=== PATIENT | male | born 1955 | race African-American/Black ===

== ENCOUNTER 2020-07-08 12:12 | Inpatient (IN) ==
[2020-07-08 14:35] LABS: Basophils % 0.4 % (0.0-0.8); Eosinophils # 0.4 10*3/uL (0.0-0.87); Eosinophils % 4.9 % (0.00-10.9); Hematocrit 41.1 VOL% (42.0-52.0); Hemoglobin 14.5 GM/DL (14.0-18.0); Immature Granulocytes % 0.5 %; Immature Granulocytes Absolute 0.04 #; Lymphocytes # 0.8 10*3/uL (1.4-4.0); Mean Corpuscular HGB Conc 35.3 GM/DL (32-36); Mean Platelet Volume 10.7 FL (9.6-12.0); Monocytes % 6.4 % (1.7-12.7); Neutrophils % 77.8 % (38.7-73.9); Platelet Count 149 T/CUMM (130-400); Red Blood Count 4.78 MC/CUMM (3.8-5.5); Red Cell Distribution Width 13.7 % (9.3-17.3); White Blood Count 7.5 T/CUMM (4-12)
[2020-07-08 15:05] LABS: Albumin 3.5 G/DL (3.4-5.0); Bilirubin,Total 2.3 MG/DL (0.2-1.0); Calcium 8.8 MG/DL (8.5-10.1); Osmolality,Calculated 261.9 MOS/KG (273-304); Potassium 4.2 MMOL/L (3.5-5.1); Total Protein 7.6 G/DL (6.4-8.2)
[2020-07-08] MEDS ORDERED: SODIUM CHLORIDE 0.9% 1,000 ML IV STA (15:19)
[2020-07-08] MEDS ORDERED: ONDANSETRON 4 MG/2 ML VIAL IV PRN (15:52)
[2020-07-08] MEDS ORDERED: chlordiazePOXIDE 10 MG CAPSULE PO PRN (16:48)
[2020-07-08] MEDS: SODIUM CHLORIDE 0.9% 1,000 ML IV SCH (18:34)
[2020-07-08] MEDS: HEPARIN 5,000 UNIT/1 ML VIAL SUBCUT SCH (18:35)
[2020-07-09 05:32] LABS: Basophils % 0.3 % (0.0-0.8); Eosinophils # 0.4 10*3/uL (0.0-0.87); Eosinophils % 5.5 % (0.00-10.9); Hematocrit 36.8 VOL% (42.0-52.0); Hemoglobin 13.3 GM/DL (14.0-18.0); Immature Granulocytes % 0.7 %; Immature Granulocytes Absolute 0.05 #; Lymphocytes # 0.8 10*3/uL (1.4-4.0); Lymphocytes % 11.7 % (21.2-54.2); Mean Corpuscular HGB Conc 36.1 GM/DL (32-36); Mean Corpuscular Volume 85.6 FL (87-102); Mean Platelet Volume 11.6 FL (9.6-12.0); Monocytes % 7.6 % (1.7-12.7); Neutrophils % 74.2 % (38.7-73.9); Platelet Count 126 T/CUMM (130-400); Red Cell Distribution Width 13.4 % (9.3-17.3); White Blood Count 7.1 T/CUMM (4-12)
[2020-07-09 05:53] LABS: Hypochromasia 1+
[2020-07-09 05:54] LABS: Microcytosis Slight
[2020-07-09 05:55] LABS: Platelet Estimate Adequate
[2020-07-09] MEDS: SODIUM CHLORIDE 0.9% 1,000 ML IV SCH ×4 (06:04→20:40)
[2020-07-09] MEDS: HEPARIN 5,000 UNIT/1 ML VIAL SUBCUT SCH ×2 (06:05→15:22)
[2020-07-09 06:45] LABS: Albumin 2.5 G/DL (3.4-5.0); Alkaline Phosphatase 388 U/L (45-117); Aspartate Amino Transferase 655 U/L (0-37); Blood Urea Nitrogen 58 MG/DL (7-18); Carbon Dioxide 17 MMOL/L (21-32); Estimated Glom Filtration Rate 7 ML/MIN; Glucose 83 MG/DL (74-106); HDL Cholesterol < 10 MG/DL (40-60); Osmolality,Calculated 256.2 MOS/KG (273-304); Potassium 4.7 MMOL/L (3.5-5.1); Total Protein 6.4 G/DL (6.4-8.2); Triglycerides 312 MG/DL (2-150); VLDL CHOLESTEROL 62.4 MG/DL
[2020-07-09 06:46] LABS: Alanine Aminotransferase 1408 U/L (16-61)
[2020-07-09 06:47] LABS: Sodium 120 MMOL/L (136-145)
[2020-07-09 06:50] LABS: Hepatitis B Core IgM Quant 0.07 Index; Hepatitis B Surface Ag Quant < 0.10 Index; Hepatitis B Surface Ag Result Non-Reactive (NonReactive); Hepatitis C Virus Ab Quant 0.24 Index; Hepatitis C Virus Ab Result Non-Reactive (NonReactive)
[2020-07-09] MEDS ORDERED: SODIUM BICARBONATE 50 MEQ/50 ML VIAL IV ONE ×2 (07:13→08:00)
[2020-07-09] MEDS: FAMOTIDINE 20 MG TABLET PO SCH (09:00)
[2020-07-09] MEDS ORDERED: PANTOPRAZOLE 40 MG TABLET PO SCH (09:00)
[2020-07-09] MEDS: FOLIC ACID 1 MG TABLET PO SCH (09:00)
[2020-07-09] MEDS: THIAMINE 100 MG TABLET PO SCH (09:01)
[2020-07-09] MEDS: LEVOTHYROXINE 50 MCG TABLET PO SCH (09:01)
[2020-07-09] MEDS: MULTIVITAMIN (BEROCCA) TABLET PO SCH (09:01)
[2020-07-09 19:22] LABS: Bacteria,Urine Occasional /HPF (Few); Bilirubin,Urine Negative (Negative); Blood, Urine Negative (Negative); Glucose,Urine (UA) Negative (Negative); Ketones,Urine Negative (Negative); Nitrite,Urine Negative (Negative); Protein,Urine Negative; RBC,Urine <1 /HPF (0-4); Squamous Epithelial Cell,Urine Occasional /HPF (0-10); Urine Appearance CLEAR (Clear); Urine Color Straw (Yellow); Urine Specific Gravity 1.004 (1.001-1.035); Urine Urobilinogen < 2.0 EU/DL (0.2-1.0); WBC,Urine 2 /HPF (0-6)
[2020-07-10] MEDS: HEPARIN 5,000 UNIT/1 ML VIAL SUBCUT SCH ×2 (03:39→16:04)
[2020-07-10] MEDS: SODIUM CHLORIDE 0.9% 1,000 ML IV SCH ×5 (03:39→23:40)
[2020-07-10 06:02] LABS: Basophils % 0.4 % (0.0-0.8); Eosinophils # 0.4 10*3/uL (0.0-0.87); Eosinophils % 6.7 % (0.00-10.9); Hematocrit 36.1 VOL% (42.0-52.0); Hemoglobin 12.6 GM/DL (14.0-18.0); Immature Granulocytes % 0.6 %; Immature Granulocytes Absolute 0.03 #; Lymphocytes # 0.9 10*3/uL (1.4-4.0); Lymphocytes % 17.3 % (21.2-54.2); Mean Corpuscular HGB Conc 34.9 GM/DL (32-36); Mean Platelet Volume 10.7 FL (9.6-12.0); Monocytes % 12.5 % (1.7-12.7); Neutrophils % 62.5 % (38.7-73.9); Platelet Count 96 T/CUMM (130-400); Red Blood Count 4.15 MC/CUMM (3.8-5.5); Red Cell Distribution Width 13.9 % (9.3-17.3); White Blood Count 5.2 T/CUMM (4-12)
[2020-07-10 06:25] LABS: Albumin 2.4 G/DL (3.4-5.0); Bilirubin,Total 1.1 MG/DL (0.2-1.0); Calcium 8.1 MG/DL (8.5-10.1); Osmolality,Calculated 270.2 MOS/KG (273-304); Potassium 4.6 MMOL/L (3.5-5.1); Total Protein 5.9 G/DL (6.4-8.2)
[2020-07-10 06:42] LABS: Platelet Estimate Decreased
[2020-07-10] MEDS ORDERED: SIMETHICONE CHEW 125 MG TABLET PO PRN ×3 (09:04→17:00)
[2020-07-10] MEDS: MULTIVITAMIN (BEROCCA) TABLET PO SCH (09:19)
[2020-07-10] MEDS: THIAMINE 100 MG TABLET PO SCH (09:19)
[2020-07-10] MEDS: LEVOTHYROXINE 50 MCG TABLET PO SCH (09:19)
[2020-07-10] MEDS: FAMOTIDINE 20 MG TABLET PO SCH (09:20)
[2020-07-10] MEDS: FOLIC ACID 1 MG TABLET PO SCH (09:20)
[2020-07-10] MEDS ORDERED: MAGNESIUM HYDROXIDE SUSP 30 ML UDCUP PO ONE (20:40)
[2020-07-11] MEDS: HEPARIN 5,000 UNIT/1 ML VIAL SUBCUT SCH ×2 (03:59→15:04)
[2020-07-11] MEDS: SODIUM CHLORIDE 0.9% 1,000 ML IV SCH ×3 (05:09→18:25)
[2020-07-11 06:09] LABS: Basophils % 0.5 % (0.0-0.8); Eosinophils # 0.4 10*3/uL (0.0-0.87); Eosinophils % 6.3 % (0.00-10.9); Hematocrit 38.1 VOL% (42.0-52.0); Hemoglobin 13.2 GM/DL (14.0-18.0); Immature Granulocytes % 0.3 %; Immature Granulocytes Absolute 0.02 #; Lymphocytes # 1.2 10*3/uL (1.4-4.0); Lymphocytes % 19.5 % (21.2-54.2); Mean Corpuscular HGB Conc 34.6 GM/DL (32-36); Mean Corpuscular Volume 88.6 FL (87-102); Mean Platelet Volume 10.8 FL (9.6-12.0); Monocytes % 14.2 % (1.7-12.7); Neutrophils % 59.2 % (38.7-73.9); Platelet Count 105 T/CUMM (130-400); Red Cell Distribution Width 14.6 % (9.3-17.3); White Blood Count 6.1 T/CUMM (4-12)
[2020-07-11 06:33] LABS: Albumin 2.7 G/DL (3.4-5.0); Bilirubin,Total 1.4 MG/DL (0.2-1.0); Calcium 8.1 MG/DL (8.5-10.1); Osmolality,Calculated 285.1 MOS/KG (273-304); Potassium 4.4 MMOL/L (3.5-5.1); Total Protein 6.5 G/DL (6.4-8.2)
[2020-07-11] MEDS: THIAMINE 100 MG TABLET PO SCH (08:02)
[2020-07-11] MEDS: FAMOTIDINE 20 MG TABLET PO SCH ×2 (08:02→08:54)
[2020-07-11] MEDS: MULTIVITAMIN (BEROCCA) TABLET PO SCH (08:02)
[2020-07-11] MEDS: LEVOTHYROXINE 50 MCG TABLET PO SCH (08:03)
[2020-07-11] MEDS: FOLIC ACID 1 MG TABLET PO SCH (08:03)
[2020-07-11] MEDS: DOCUSATE SODIUM 100 MG CAPSULE PO SCH (21:15)
[2020-07-12] MEDS: SODIUM CHLORIDE 0.9% 1,000 ML IV SCH ×3 (01:00→14:46)
[2020-07-12] MEDS: HEPARIN 5,000 UNIT/1 ML VIAL SUBCUT SCH ×2 (04:39→16:56)
[2020-07-12] MEDS: LEVOTHYROXINE 75 MCG TABLET PO SCH (05:45)
[2020-07-12 11:47] LABS: Calcium 8.5 MG/DL (8.5-10.1); Osmolality,Calculated 290.5 MOS/KG (273-304); Potassium 4.4 MMOL/L (3.5-5.1)
[2020-07-12 12:31] LABS: Albumin 3.1 G/DL (3.4-5.0); Bilirubin,Direct 0.43 MG/DL (0.0-0.20); Bilirubin,Indirect 0.4 MG/DL (0.0-1.0); Bilirubin,Total 0.8 MG/DL (0.2-1.0); Total Protein 7.2 G/DL (6.4-8.2)
[2020-07-12] MEDS: MULTIVITAMIN (BEROCCA) TABLET PO SCH (14:45)
[2020-07-12] MEDS: DOCUSATE SODIUM 100 MG CAPSULE PO SCH ×2 (14:45→20:09)
[2020-07-12] MEDS: THIAMINE 100 MG TABLET PO SCH (14:45)
[2020-07-12] MEDS: FOLIC ACID 1 MG TABLET PO SCH (14:45)
[2020-07-12] MEDS: FAMOTIDINE 20 MG TABLET PO SCH (14:45)
[2020-07-13] MEDS: SODIUM CHLORIDE 0.9% 1,000 ML IV SCH (02:56)
[2020-07-13] MEDS: HEPARIN 5,000 UNIT/1 ML VIAL SUBCUT SCH ×2 (04:55→16:02)
[2020-07-13 05:17] LABS: Basophils % 0.4 % (0.0-0.8); Eosinophils # 0.5 10*3/uL (0.0-0.87); Eosinophils % 7.3 % (0.00-10.9); Hematocrit 37.3 VOL% (42.0-52.0); Hemoglobin 12.4 GM/DL (14.0-18.0); Immature Granulocytes % 0.3 %; Immature Granulocytes Absolute 0.02 #; Lymphocytes % 29.5 % (21.2-54.2); Mean Corpuscular HGB Conc 33.2 GM/DL (32-36); Mean Corpuscular Volume 91.4 FL (87-102); Mean Platelet Volume 9.4 FL (9.6-12.0); Monocytes % 11.3 % (1.7-12.7); Neutrophils % 51.2 % (38.7-73.9); Platelet Count 199 T/CUMM (130-400); Red Blood Count 4.08 MC/CUMM (3.8-5.5); Red Cell Distribution Width 15.6 % (9.3-17.3); White Blood Count 6.7 T/CUMM (4-12)
[2020-07-13 05:34] LABS: Calcium 8.7 MG/DL (8.5-10.1); Osmolality,Calculated 289.5 MOS/KG (273-304); Potassium 4.6 MMOL/L (3.5-5.1)
[2020-07-13 05:37] LABS: Bilirubin,Total 1.1 MG/DL (0.2-1.0); Calcium 8.6 MG/DL (8.5-10.1); Osmolality,Calculated 289.5 MOS/KG (273-304); Potassium 4.6 MMOL/L (3.5-5.1); Total Protein 7.3 G/DL (6.4-8.2)
[2020-07-13] MEDS: LEVOTHYROXINE 75 MCG TABLET PO SCH (05:42)
[2020-07-13 06:40] LABS: Total Protein (Chem) 6.4 G/DL (6.4-8.3)
[2020-07-13 08:28] LABS: Albumin (SPE) 3.8 G/DL (3.2-5.3); Albumin (SPE) Rel % 60.1 %; Alpha 1 (SPE) 0.2 G/DL (0.1-0.4); Alpha 1 (SPE) Rel % 3.4 %; Alpha 2 (SPE) 0.6 G/DL (0.4-1.0); Alpha 2 (SPE) Rel % 8.8 %; Beta (SPE) 0.8 G/DL (0.5-1.1); Beta (SPE) Rel % 12.4 %; Gamma (SPE) Rel % 15.3 %
[2020-07-13] MEDS: DOCUSATE SODIUM 100 MG CAPSULE PO SCH ×2 (09:17→20:13)
[2020-07-13] MEDS: THIAMINE 100 MG TABLET PO SCH (09:17)
[2020-07-13] MEDS: FAMOTIDINE 20 MG TABLET PO SCH (09:18)
[2020-07-13] MEDS: FOLIC ACID 1 MG TABLET PO SCH (09:18)
[2020-07-13] MEDS: MULTIVITAMIN (BEROCCA) TABLET PO SCH (09:18)
[2020-07-13] MEDS ORDERED: FUROSEMIDE 40 MG/4 ML VIAL IV ONE (13:19)
[2020-07-14] MEDS: HEPARIN 5,000 UNIT/1 ML VIAL SUBCUT SCH (04:15)
[2020-07-14 05:03] LABS: Basophils % 0.3 % (0.0-0.8); Eosinophils # 0.5 10*3/uL (0.0-0.87); Eosinophils % 7.8 % (0.00-10.9); Hemoglobin 11.1 GM/DL (14.0-18.0); Immature Granulocytes % 0.7 %; Immature Granulocytes Absolute 0.05 #; Lymphocytes # 1.8 10*3/uL (1.4-4.0); Lymphocytes % 26.9 % (21.2-54.2); Mean Corpuscular HGB Conc 33.6 GM/DL (32-36); Mean Corpuscular Volume 90.4 FL (87-102); Mean Platelet Volume 9.1 FL (9.6-12.0); Monocytes % 11.6 % (1.7-12.7); Neutrophils % 52.7 % (38.7-73.9); Platelet Count 230 T/CUMM (130-400); Red Blood Count 3.65 MC/CUMM (3.8-5.5); White Blood Count 6.7 T/CUMM (4-12)
[2020-07-14 05:29] LABS: Albumin 2.9 G/DL (3.4-5.0); Bilirubin,Total 0.8 MG/DL (0.2-1.0); Calcium 8.5 MG/DL (8.5-10.1); Osmolality,Calculated 275.4 MOS/KG (273-304); Potassium 4.3 MMOL/L (3.5-5.1); Total Protein 6.4 G/DL (6.4-8.2)
[2020-07-14] MEDS: LEVOTHYROXINE 75 MCG TABLET PO SCH (05:34)
[2020-07-14] MEDS: THIAMINE 100 MG TABLET PO SCH (08:42)
[2020-07-14] MEDS: FOLIC ACID 1 MG TABLET PO SCH (08:42)
[2020-07-14] MEDS: DOCUSATE SODIUM 100 MG CAPSULE PO SCH (08:42)
[2020-07-14] MEDS: FAMOTIDINE 20 MG TABLET PO SCH (08:42)
[2020-07-14] MEDS: MULTIVITAMIN (BEROCCA) TABLET PO SCH (08:43)
[2020-07-14] MEDS ORDERED: FENOFIBRATE 145 MG TABLET PO SCH (09:00)
[2020-07-14 11:46] VITALS: BP 138/75
== END 2020-07-14 15:18 | disposition home or self-care (01) | DRG 682 ==
LOC: N.ED 12:12 → N.EDINP 15:52 → SUATTDRO 15:52 → N.5E 16:58
PROVIDERS: ADMIT Family Medicine; ATTEND Internal Medicine